=== PATIENT | male | born 1940 | race Caucasian/White ===

== ENCOUNTER 2017-12-13 09:30 | Observation (INO) | payer MEDICARE, OTHER ==
[2017-12-13] VITALS (9 sets, daily range): BP systolic 106–131; BP diastolic 56–77
[~2017-12-13] VITALS: Ht 177.8 cm; Wt 94.5 kg
--- NOTE | 2017-12-13 09:32 | ER Report ---
History and Physical Time Seen By MD: 09:31 HPI/ROS CHIEF COMPLAINT: "Chest pressure" HISTORY OF PRESENT ILLNESS: Patient is a 77-year-old male who resides in [facility]. He is here at the [facility]. He is been experiencing intermittent left upper quadrant abdominal pressure for the past few weeks. Although the chief complaint is "chest pressure" the patient localizes the pain to the left upper abdomen. He denies any pain. He denies dyspnea or shortness of breath. He admits that over the last week his stools been very dark. he has a history of a GI ulcer is concerned that he may have another bleed. Patient denies any dizziness with positional changes. Patient denies any lightheadedness. REVIEW OF SYSTEMS: Constitutional: No fever, no chills. Eyes: No discharge. ENT: No sore throat. Cardiovascular: No chest pain, no palpitations. Respiratory: No cough, no shortness of breath. Gastrointestinal: Left upper quadrant abdominal pressure, dark stools Genitourinary: No hematuria. Musculoskeletal: No back pain. Skin: No rashes. Neurological: No headache. Allergies: Coded Allergies: No Known Drug Allergies (Unverified , 12/13/17) Home Meds Reported Medications Meloxicam (MELOXICAM) 15 Mg Tablet, 15 MG PO QDAY 12/13/17 Acetaminophen (TYLENOL) 325 Mg Tablet, 325 MG PO, TAB 12/13/17 Aspirin (ASPIR 81) 81 Mg Tablet.dr, 81 MG PO QDAY, TAB 12/13/17 Lisinopril (LISINOPRIL) 40 Mg Tablet, 40 MG PO QDAY, TAB 12/13/17 Hydrochlorothiazide (HYDROCHLOROTHIAZIDE) 25 Mg Tablet, 1 TAB PO QDAY, TAB 12/13/17 Amlodipine Besylate (AMLODIPINE BESYLATE) 5 Mg Tablet, 1 TAB PO QDAY, TAB 12/13/17 Paroxetine Hcl (PAXIL) 20 Mg Tablet, 20 MG PO QDAY, TAB 12/13/17 Sitagliptin Phosphate (JANUVIA) 50 Mg Tablet, 50 MG PO QDAY 12/13/17 Potassium Chloride (KLOR-CON) 20 Meq Packet, 40 MEQ PO QDAY, PACKET 12/13/17 Lorazepam (LORAZEPAM) 1 Mg Tab, PO, TAB 12/13/17 Past Medical/Surgical History Past medical history significant for vitiligo, type II diabetes and history of bleeding ulcer. Surgical history for left hip replacement as well as a implant for pain on the right side. Constitutional Vital Sign - Last 24 Hours 12/13/17 12/13/17 09:34 09:51 Temp 97.8 Pulse 71 Resp 20 B/P (MAP) 119/66 Pulse Ox 94 O2 Delivery Room Air O2 Flow Rate 2.0 Physical Exam General/Constitutional: Patient is awake, alert, nontoxic and in no acute respiratory distress. Head: Normocephalic and atraumatic. Eyes: Conjunctival clear, Pupils are equal and reactive to light. Extraocular muscles are intact and symmetrical. Sclera are clear and anicteric. Ears:External canals are clear. Tympanic membranes are clear with normal landmarks and light reflex. Nares: No rhinorrhea or bleeding. Turbinates are pink and moist. Oropharyngeal: Mucous membranes are moist. There is no pharyngeal erythema or exudate. There are no palatal petechiae. Uvula is midline and symmetrical. Neck: Supple, no adenopathy. Cardiovascular: Heart is regular rate and rhythm without audible murmurs, rubs or gallops. Pulmonary: Lungs are clear to auscultation bilaterally. There are no wheezes, rales, or rhonchi. Chest rise is symmetrical Abdomen: Soft, nontender, no guarding or peritoneal signs. Rectal exam reveals normal tone with black tarry stool Extremities: No gross deformities, No peripheral cyanosis. Able to move all 4 extremities. Neuro: Alert and oriented X3, Cranial nerves 2 thru 12 are intact and symmetrical. Patient has normal gait. Skin: Vitiligo Medical Decision Making Data Points Result Diagram: 12/13/17 0948 12/13/17 0948 Laboratory Hematology Test 12/13/17 09:48 12/13/17 10:15 Red Blood Count 3.39 M/uL (4.00-5.60) Mean Corpuscular Volume 89.7 fL (80.0-96.0) Mean Corpuscular Hemoglobin 32.2 pg (26.0-33.0) Mean Corpuscular Hemoglobin Concent 35.9 g/dL (32.0-36.0) Red Cell Distribution Width 12.9 % (11.5-14.5) Mean Platelet Volume 8.3 fL (7.2-11.1) Neutrophils (%) (Auto) 73.5 % (39.4-72.5) Lymphocytes (%) (Auto) 13.9 % (17.6-49.6) Monocytes (%) (Auto) 6.6 % (4.1-12.4) Eosinophils (%) (Auto) 5.2 % (0.4-6.7) Basophils (%) (Auto) 0.8 % (0.3-1.4) Nucleated RBC Relative Count (auto) 0.0 /100WBC Neutrophils # (Auto) 5.7 K/uL (2.0-7.4) Lymphocytes # (Auto) 1.1 K/uL (1.3-3.6) Monocytes # (Auto) 0.5 K/uL (0.3-1.0) Eosinophils # (Auto) 0.4 K/uL (0.0-0.5) Basophils # (Auto) 0.1 K/uL (0.0-0.1) Nucleated RBC Absolute Count (auto) 0.00 K/uL Prothrombin Time 14.4 seconds (12.0-14.4) Prothromb Time International Ratio 1.11 Activated Partial Thromboplast Time 28 seconds (23-35) Sodium Level 142 mmol/L (137-145) Potassium Level 3.6 mmol/L (3.5-5.0) Chloride Level 102 mmol/L (98-107) Carbon Dioxide Level 23 mmol/L (22-30) Blood Urea Nitrogen 54 mg/dl (9-21) Creatinine 1.20 mg/dl (0.66-1.25) Glomerular Filtration Rate Calc 58.7 Random Glucose 179 mg/dl (75-110) Calcium Level 9.4 mg/dl (8.4-10.2) Total Bilirubin 0.5 mg/dl (0.2-1.3) Aspartate Amino Transf (AST/SGOT) 27 U/L (0-35) Alanine Aminotransferase (ALT/SGPT) 28 U/L (0-56) Alkaline Phosphatase 45 U/L (0-126) Troponin I < 0.012 ng/ml B-Type Natriuretic Peptide 10 pg/ml (0-100) Total Protein 6.2 gm/dl (6.3-8.2) Albumin 3.7 g/dl (3.5-5.0) Lipase 239 U/L (23-300) Stool Occult Blood (IFOB) Positive (NEGATIVE) Chemistry Test 12/13/17 09:48 12/13/17 10:15 White Blood Count 7.7 k/uL (4.5-11.0) Red Blood Count 3.39 M/uL (4.00-5.60) Hemoglobin 10.9 g/dL (14.0-18.0) Hematocrit 30.4 % (42.0-52.0) Mean Corpuscular Volume 89.7 fL (80.0-96.0) Mean Corpuscular Hemoglobin 32.2 pg (26.0-33.0) Mean Corpuscular Hemoglobin Concent 35.9 g/dL (32.0-36.0) Red Cell Distribution Width 12.9 % (11.5-14.5) Platelet Count 186 K/uL (150-450) Mean Platelet Volume 8.3 fL (7.2-11.1) Neutrophils (%) (Auto) 73.5 % (39.4-72.5) Lymphocytes (%) (Auto) 13.9 % (17.6-49.6) Monocytes (%) (Auto) 6.6 % (4.1-12.4) Eosinophils (%) (Auto) 5.2 % (0.4-6.7) Basophils (%) (Auto) 0.8 % (0.3-1.4) Nucleated RBC Relative Count (auto) 0.0 /100WBC Neutrophils # (Auto) 5.7 K/uL (2.0-7.4) Lymphocytes # (Auto) 1.1 K/uL (1.3-3.6) Monocytes # (Auto) 0.5 K/uL (0.3-1.0) Eosinophils # (Auto) 0.4 K/uL (0.0-0.5) Basophils # (Auto) 0.1 K/uL (0.0-0.1) Nucleated RBC Absolute Count (auto) 0.00 K/uL Prothrombin Time 14.4 seconds (12.0-14.4) Prothromb Time International Ratio 1.11 Activated Partial Thromboplast Time 28 seconds (23-35) Glomerular Filtration Rate Calc 58.7 Calcium Level 9.4 mg/dl (8.4-10.2) Total Bilirubin 0.5 mg/dl (0.2-1.3) Aspartate Amino Transf (AST/SGOT) 27 U/L (0-35) Alanine Aminotransferase (ALT/SGPT) 28 U/L (0-56) Alkaline Phosphatase 45 U/L (0-126) Troponin I < 0.012 ng/ml B-Type Natriuretic Peptide 10 pg/ml (0-100) Total Protein 6.2 gm/dl (6.3-8.2) Albumin 3.7 g/dl (3.5-5.0) Lipase 239 U/L (23-300) Stool Occult Blood (IFOB) Positive (NEGATIVE) Coagulation Test 12/13/17 09:48 Prothrombin Time 14.4 seconds Prothromb Time International Ratio 1.11 Activated Partial Thromboplast Time 28 seconds ED Course/Re-evaluation ED Course 12/13/2017 9:41:27 am After history and physical exam was performed differential diagnosis was formulated which includes but is not limited to acute coronary syndrome, acute IN, gastritis, upper GI bleed, pancreatitis. Plan at this time will be to initiate a cardiac workup including EKG and chest x -ray. We'll perform a troponin test. I will also test liver enzymes, lipase and occult stool for blood. At this time I am more suspicious of a GI cause so we will hold aspirin and nitroglycerin at this time. 12/13/2017 11:42:45 am patient with suspected upper GI bleed based on blood work Hemoccult testing in symptoms. I did speak with [phone] who is the patient's primary care provider [facility] in [place]. He agrees patient should be admitted at this facility based on his low blood pressure and GI bleed symptoms. I did discuss case with Dr. Vinson was agreed to accept patient for admission at this time. Decision to Disposition Date: December 13, 2017 Decision to Disposition Time: 11:42 Depart Departure Latest Vital Signs Vital Signs Date Time Temp Pulse Resp B/P (MAP) Pulse Ox O2 Delivery O2 Flow Rate FiO2 12/13/17 09:51 2.0 12/13/17 09:34 97.8 71 20 119/66 94 Room Air Impression: Primary Impression: Upper GI bleed Condition: Improved Disposition: Admitted from ER (to Dr Vinson) REDDY BEST MD December 13, 2017 09:32
[2017-12-13] MEDS ORDERED: ASPIRIN 81 MG CHEW PO ONE (09:35)
[2017-12-13] MEDS ORDERED: NITROGLYCERIN 0.4 MG SUBL SL SCH (09:35)
[2017-12-13] MEDS ORDERED: ASPIRIN 81 MG CHEW ONE (09:46)
[2017-12-13] MEDS ORDERED: LISI-374 PO (09:51)
[2017-12-13] MEDS ORDERED: HYDR-2966 PO (09:51)
[2017-12-13] MEDS ORDERED: ASPI-1471 PO (09:51)
[2017-12-13] MEDS ORDERED: MELO-207 PO (09:51)
[2017-12-13] MEDS ORDERED: SITA50TA6 PO (09:51)
[2017-12-13] MEDS ORDERED: POTA20PA10 PO (09:51)
[2017-12-13] MEDS ORDERED: ACET-1966 PO (09:51)
[2017-12-13] MEDS ORDERED: LOR1 PO (09:51)
[2017-12-13] MEDS ORDERED: AMLO-96 PO (09:51)
[2017-12-13] MEDS ORDERED: PARO-243 PO (09:51)
[2017-12-13] MEDS ORDERED: PANTOPRAZOLE SOD(*)40 MG VIAL 80 MG in NS(*) 0.9% 100 ML BAG 100 ML IV SCH (09:55)
[2017-12-13] MEDS ORDERED: PANTOPRAZOLE SOD(*)40 MG VIAL 80 MG in NS(*) 0.9% 100 ML BAG 100 ML IVPB ONE (09:55)
[2017-12-13 09:56] LABS: PLATELET COUNT, AUTOMATED 186 K/uL (150-450)
--- NOTE | 2017-12-13 09:56 | EKG ---
FACILITY: [facility] PATIENT NAME: SIMONE MAHONEY : [id number] MR: [id number] V: [id number] EXAM DATE: ORDERING PHYSICIAN: REDDY BEST TECHNOLOGIST: Marshall Box Reason : Blood Pressure : / mmHG Vent. Rate : 070 BPM Atrial Rate : 070 BPM P-R Int : 188 ms QRS Dur : 110 ms QT Int : 460 ms P-R-T Axes : 052 -51 -19 degrees QTc Int : 496 ms Sinus rhythm Left axis Nonspecific interventricular conduction delay Nonspecific ST abnormality Prolonged QT Abnormal ECG No previous ECGs available Confirmed by DAVID VEGA ([id number]) on 12/14/2017 2:00:33 PM Referred By: Confirmed By:DAVID VEGA
[2017-12-13 10:11] LABS: INR 1.11
[2017-12-13] MEDS ORDERED: NS(*) 0.9% 1000 ML BAG 1,000 ML IV ONE (10:15)
--- NOTE | 2017-12-13 10:20 | RADIOLOGY IMAGING REPORT ---
FACILITY: [facility] PATIENT NAME: Dwayne Jefferson : 1940 MR: [id number] V: [id number] EXAM DATE: ORDERING PHYSICIAN: REDDY BEST TECHNOLOGIST: Location: [facility] Patient: Dwayne Jefferson : 1940 Visit/Account:[id number] Date of Sevice: 12/13/2017 Exam type: CHEST SINGLE AP History: Chest Pain Comparison: None. Findings: EKG leads project over the thorax. The lungs are free of acute infiltrates, effusions or overt pulmo nary edema. The cardiac silhouette is normal in size. The hilar shadows appear prominent, right gre ater than left. There is no evidence of a pneumothorax or pneumomediastinum. IMPRESSION: 1. Hilar shadows appear prominent, right greater than left. This could be related to pulmonary padmini rial hypertension. Hilar mass is not excluded. Depending upon the clinical concern short-term inter gabriela follow-up chest or chest CT recommended Report Dictated By: Ella Peralta MD at 12/13/2017 10:14 AM Report E-Signed By: Ella Peralta MD at 12/13/2017 10:16 AM GUILLERMON:RHINA
[2017-12-13] MEDS ORDERED: NORMOSOL R SOLN(*) 1000 ML BAG 1,000 ML IV PRN (12:10)
--- NOTE | 2017-12-13 12:10 | General Surgery 1 H&P ---
History of Present Illness Chief Complaint black stools History of Present Illness 77 yo female with a history of dm and htn presents with upper abdominal discomfort for a couple of weeks. last night it increased in severity and he noticed black stools. no bright red blood. pt has a history of bleeding ulcer. no smoking. pt seen in ed stool Hemoccult positive and hgb 10. History Other Past Surgeries: left hip, appendectomy and nerve stimulator Home Meds Reported Medications Meloxicam (MELOXICAM) 15 Mg Tablet, 15 MG PO QDAY 12/13/17 Acetaminophen (TYLENOL) 325 Mg Tablet, 325 MG PO, TAB 12/13/17 Aspirin (ASPIR 81) 81 Mg Tablet.dr, 81 MG PO QDAY, TAB 12/13/17 Lisinopril (LISINOPRIL) 40 Mg Tablet, 40 MG PO QDAY, TAB 12/13/17 Hydrochlorothiazide (HYDROCHLOROTHIAZIDE) 25 Mg Tablet, 1 TAB PO QDAY, TAB 12/13/17 Amlodipine Besylate (AMLODIPINE BESYLATE) 5 Mg Tablet, 1 TAB PO QDAY, TAB 12/13/17 Paroxetine Hcl (PAXIL) 20 Mg Tablet, 20 MG PO QDAY, TAB 12/13/17 Sitagliptin Phosphate (JANUVIA) 50 Mg Tablet, 50 MG PO QDAY 12/13/17 Potassium Chloride (KLOR-CON) 20 Meq Packet, 40 MEQ PO QDAY, PACKET 12/13/17 Lorazepam (LORAZEPAM) 1 Mg Tab, PO, TAB 12/13/17 Allergies: Coded Allergies: No Known Drug Allergies (Unverified , 12/13/17) Review of Systems History of Hypertension?: Yes History of Diabetes?: Yes History of DVT?: No Obstructive Sleep Apnea?: No History of Liver Disease?: No History of Kidney Disease?: No Respiratory: Denies Shortness of Breath, Denies Other Cardiovascular: Denies Chest Pain, Denies Other Gastrointestinal: Melena, Abdominal Pain : Denies Dysuria, Denies Other Exam Vital Signs Date Time Temp Pulse Resp B/P (MAP) Pulse Ox O2 Delivery O2 Flow Rate FiO2 12/13/17 11:15 95/50 (65) 12/13/17 11:00 13 93 12/13/17 10:30 67 12/13/17 09:51 2.0 12/13/17 09:34 97.8 Room Air General Appearance: Alert, Awake, No Acute Distress GI: Abd Soft and Non-Tender Medical Decision Making Data Points Result Diagram: 12/13/1794712/13/17947 Assessment and Plan Problems: (1) Upper GI bleed Status: Acute Assessment & Plan: admit npo give iv protonix, upper endoscopy later today. Copies to: HUMZA LOFTON MD Venous Thromboembolism Antithrombotics Is Pt On Any Antithrombotics?: No HUMZA LOFTON MD December 13, 2017 12:10
[2017-12-13] MEDS ORDERED: [UNRECOGNIZED DRUG - CODE] PO (13:26)
[2017-12-13] MEDS ORDERED: CARV25TA78 PO (13:26)
[2017-12-13] MEDS ORDERED: PROPOFOL EMUL(*) 10MG/ML 20 ML 20 ML ONE (14:50)
[2017-12-13] MEDS ORDERED: ETOMIDATE 20 MG/10 ML VIAL ONE (14:50)
[2017-12-13] MEDS ORDERED: SUCCINYLCHOL CHL 200MG/10ML VL ONE (14:50)
[2017-12-13] MEDS ORDERED: ROCURONIUM BROM 10 MG/ML 10 ML ONE (14:50)
[2017-12-13] MEDS ORDERED: ONDANSETRON 4 MG/2 ML VIAL ONE (14:50)
[2017-12-13] MEDS ORDERED: DEXAMETHASONE SOD PHOS 10MG/ML ONE (14:50)
[2017-12-13] MEDS ORDERED: LIDOCAINE MPF 1% 5 ML VIAL ONE (14:50)
--- NOTE | 2017-12-13 16:58 | Post Operative Progress Note ---
Post Operative Progress Note Date: December 13, 2017 Time: 16:56 Surgeon: ruchi Anesthesia: dr garcia Pre-Op Diagnosis: ugi bleed Post-Op Diagnosis: pyloric ulcer, no active bleeding Procedure(s): egd and bx h. pylori HUMZA LOFTON MD December 13, 2017 16:58
[2017-12-13] MEDS: SUCRALFATE 1 GM TAB PO SCH ×2 (18:44→20:50)
[2017-12-13] MEDS ORDERED: NS(*) 0.9% 500 ML BAG 500 ML IV PRN (19:00)
[2017-12-13] MEDS ORDERED: ACETAMINOPHEN 500 MG TAB PO SCH (21:00)
[2017-12-13] MEDS ORDERED: LORazepam 1 MG TAB PO SCH (21:00)
[2017-12-13] MEDS ORDERED: MELOXICAM 7.5 MG TAB PO SCH (21:00)
[2017-12-13] MEDS ORDERED: PARoxetine HCL 20 MG TAB PO SCH (21:00)
[2017-12-14 02:55] VITALS: BP 120/63
[2017-12-14] MEDS: SUCRALFATE 1 GM TAB PO SCH (05:35)
[2017-12-14 05:59] LABS: PLATELET COUNT, AUTOMATED 169 K/uL (150-450)
[2017-12-14 07:02] VITALS: BP 125/58
--- NOTE | 2017-12-14 07:37 | General Surgery Progress Note ---
Subjective Progress Notes Subjective he feels great, no pain, tolerating po diet Physical Exam Vital Signs Date Time Temp Pulse Resp B/P (MAP) Pulse Ox O2 Delivery O2 Flow Rate FiO2 12/14/17 07:02 98.6 84 16 125/58 (80) 90 Room Air 12/14/17 02:55 5.0 General Appearance: Alert, Awake, No Acute Distress GI: Soft and Non-Tender Result Diagram: 12/14/17 0520 12/14/17 0520 Assessment and Plan Problems: (1) Upper GI bleed Status: Acute Assessment & Plan: admit npo give iv protonix, upper endoscopy later today. 12/14/17 doing well, hgb stable , will discharge Exam Sepsis Risk: No Definite Risk HUMZA LOFTON MD December 14, 2017 07:37
[2017-12-14] MEDS ORDERED: SUCR1TAB85 PO (07:41)
[2017-12-14] MEDS ORDERED: IRON1TAB34 PO (07:41)
[2017-12-14] MEDS ORDERED: PANT40TA65 PO (07:41)
--- NOTE | 2017-12-14 07:44 | Short(Outpt) Discharge Summary ---
Discharge Summary Reason for Hosp/Final Diag: (1) Upper GI bleed Status: Acute Hospital Course & Plan: admit npo give iv protonix, upper endoscopy later today. 12/14/17 doing well, hgb stable , will discharge Departure Discharge to: Home Discharge Instructions Home Meds Active Scripts Iron Ag,Ps/C/Fa6/B12/Zn/SA/Sto (Niferex Tablet) 150MG-60-1 Tablet, 150 MG PO BID , #30 TAB Prov:HUMZA LOFTON MD 12/14/17 Sucralfate (CARAFATE) 1 Gm Tablet, 1 GM PO ACHS1, #40 TAB Prov:HUMZA LOFTON MD 12/14/17 Pantoprazole Sodium (PANTOPRAZOLE SODIUM) 40 Mg Tablet., 40 MG PO QDAY, #60 TAB.SR 3 Refills Prov:HUMZA LOFTON MD 12/14/17 Reported Medications Carvedilol (CARVEDILOL) 25 Mg Tablet, 25 MG PO BID, #10 TAB 12/13/17 Acetaminophen/Diphenhydramine (ACETAMINOPHEN PM GELTAB) 1 Each Tablet, 1000 MG PO QHS, TAB 12/13/17 Meloxicam (MELOXICAM) 15 Mg Tablet, 15 MG PO HS 12/13/17 Aspirin (ASPIR 81) 81 Mg Tablet.dr, 81 MG PO HS, TAB 12/13/17 Lisinopril (LISINOPRIL) 40 Mg Tablet, 40 MG PO QDAY, TAB 12/13/17 Hydrochlorothiazide (HYDROCHLOROTHIAZIDE) 25 Mg Tablet, 1 TAB PO HS, TAB 12/13/17 Amlodipine Besylate (AMLODIPINE BESYLATE) 5 Mg Tablet, 1 TAB PO HS, TAB 12/13/17 Paroxetine Hcl (PAXIL) 20 Mg Tablet, 20 MG PO HS, TAB 12/13/17 Sitagliptin Phosphate (JANUVIA) 50 Mg Tablet, 50 MG PO QDAY 12/13/17 Potassium Chloride (KLOR-CON) 20 Meq Packet, 40 MEQ PO BID, PACKET 12/13/17 Lorazepam (LORAZEPAM) 1 Mg Tab, 1 MG PO HS for Sleep, TAB 12/13/17 Discontinued Reported Medications Acetaminophen (TYLENOL) 325 Mg Tablet, 325 MG PO, TAB 12/13/17 Diet: Regular Activity: As Tolerated Special Instructions: repeat cbc in 48 hr Copies to: HUMZA Mcneill MD December 14, 2017 07:44
--- NOTE | 2018-01-08 14:33 | OPERATIVE REPORT 1 ---
EVENT DATE: December 13, 2017 SURGEON: Lee Vinson MD ANESTHESIOLOGIST: Marcial Jung MD ANESTHESIA: Sedation. PREOPERATIVE DIAGNOSIS Upper gastrointestinal bleed. POSTOPERATIVE DIAGNOSIS Pyloric ulcer. PROCEDURE PERFORMED Esophagogastroduodenoscopy with biopsy for H. pylori. DESCRIPTION OF PROCEDURE The patient was placed in left lateral decubitus position and given intravenous sedation. Flexible gastroscope was inserted. The esophagus appeared to be normal. It distended nicely. No ulceration, inflammation was noted. We entered the stomach, which was empty. We passed through the stomach to the pylorus. He had an ulcer at the pylorus, no active bleeding, no visible vessel , no blood in the stomach or duodenum. We passed through that into the duodenum into the second and third portions, which were normal. Duodenal bulb was normal. The antrum was normal. Body of the stomach was normal. Scope was retroflexed. There were no fundic lesion. We biopsied the stomach for H. pylori. Patient tolerated the procedure well, no apparent complications. [facility]
== END 2017-12-14 09:00 | disposition home or self-care (01) ==
LOC: ER 09:36 → INTOOBSV 11:51 → MED 11:51
PROVIDERS: ADMIT Surgery; ATTEND Surgery
DX: K92.2 Gastrointestinal hemorrhage, unspecified (principal); E11.9 Type 2 diabetes mellitus without complications; R94.31 Abnormal electrocardiogram [ECG] [EKG]
CPT/HCPCS: 36415; 36416; 43239; 71045; 82274; 82948; 83690; 83880; 84484; 85014; 85018; 85025; 85610; 85730; 86850; 86900; 86901; 87077; 93005; 99284; A9270; C9113; G0378; J0330; J1100; J2001; J2405; J2704; J3490; J7030; J7050; 82040; 82247; 82310; 82374; 82435; 82565; 82947; 84075; 84132; 84155; 84295; 84450; 84460; 84520